=== PATIENT | male | born 1985 | race Two or more races ===

== ENCOUNTER 2018-07-13 16:49 | Emergency (ER) | payer SELFPAY ==
[~2018-07-13] VITALS: Ht 167.6 cm; Wt 77.1 kg
[2018-07-13 17:51] VITALS: BP 143/81
[2018-07-13] MEDS ORDERED: ACYC200C PO (18:53)
[2018-07-13] MEDS ORDERED: PRED20TA PO (18:53)
--- NOTE | 2018-07-13 18:53 | PHYS DOC ---
Past Medical History Past Medical History: No Pertinent History Past Surgical History: No Surgical History Alcohol Use: None Drug Use: None Adult General Chief Complaint Chief Complaint: OTHER COMPLAINTS HPI HPI Patient is a 32 year old male who presents to the emergency room with complaints of not being able to move the right side of his face since awakening this morning. Patient states he has sensation is just unable to close his right eye or move the right side of his forehead her mouth. He denies any recent fever or illness. He denies any recent travel. Patient also denies any vision changes or pain. He denies any past medical, or surgical history he is not allergic to any medications and does not currently take any medications. And started all of a sudden this morning when he woke up. Eyes any drainage from his right eye or any known injury. Review of Systems Review of Systems Constitutional: Denies fever or chills [] Eyes: Denies change in visual acuity, redness, or eye pain; reports tearing from right eye and inability to close his right eye [] HENT: Denies nasal congestion, ear pain or sore throat [] Respiratory: Denies cough, wheezing, or shortness of breath [] Cardiovascular: Denies chest pain Musculoskeletal: Denies back pain or joint pain [] Integument: Denies rash or skin lesions [] Neurologic: Denies headache, focal weakness or sensory changes, reports inability to move the right side of his mouth, his right forehead, or close his right eye since wakening this morning. [] All other systems were reviewed and found to be within normal limits, except as documented in this note. Allergies Allergies Allergies Coded Allergies Type Severity Reaction Last Updated Verified No Known Drug Allergies 07/13/18 No Physical Exam Physical Exam Constitutional: Well developed, well nourished, no acute distress, non-toxic appearance. [] HENT: Normocephalic, atraumatic, bilateral external ears normal, bilateral TMs normal, oropharynx moist, no oral exudates, nose normal; pt is unable to move the right side of his mouth, his R forhead, or his right eyelid, consistent with purdy's palsy [] Eyes: PERRLA, EOMI, conjunctiva normal left eye, conjunctiva appears dry with mild erythema to right eye, no discharge. [] Neck: Normal range of motion, no tenderness, supple, no stridor. [] Skin: Warm, dry, no erythema, no rash. [] Neurologic: Alert and oriented X 3, normal sensory function Psychologic: Affect normal, judgement normal, mood normal. [] Current Patient Data Vital Signs Vital Signs Date Time Temp Pulse Resp B/P (MAP) Pulse Ox O2 Delivery O2 Flow Rate FiO2 07/13/18 17:51 98.3 71 20 143/81 (101) 96 Room Air 98.3 EKG EKG [] Radiology/Procedures Radiology/Procedures [] Course & Med Decision Making Course & Med Decision Making Pertinent Labs and Imaging studies reviewed. (See chart for details) Patient is a 32-year-old male who presented to the emergency Department today with complaints of inability to close his right eye, right eye tearing, and inability to move the right side of his mouth or forehead since awakening this morning. VSS, physical exam is consistent with Purdy's palsy, is treated as such. Patient denies any difficulty speaking, weakness, numbness, tingling, or headache associated with the inability to move the right side of his . He also denied any recent illness. Patient is given prescriptions for acyclovir, and prednisone. He verbalized understanding of these prescriptions, follow-up, home care, and return to ED instructions without any further questions or concerns. The ER nurse place saline drops into the patient's right eye and closed his eye with tape prior to being discharged. [] Dragon Disclaimer Dragon Disclaimer This electronic medical record was generated, in whole or in part, using a voice recognition dictation system. Departure Departure Impression: Primary Impression: Purdy's palsy Disposition: 01 HOME, SELF-CARE Condition: STABLE Referrals: NO PCP (PCP) Patient Instructions: Purdy's Palsy-Brief Additional Instructions: Fill the prescriptions and use them as directed. Purchase [id number] refresh tears to be placed into eye at least once every hour while awake and as needed for dryness. Also purchase [id number] eye lubricant to be applied to your eye at bedtime, tape your eyelid shut during the night. Follow-up with your primary care doctor in the next 1-2 days. Return to the emergency room if her symptoms worsen or persist. Scripts Prednisone (PREDNISONE) 20 Mg Tablet 60 MG PO DAILY for 7 Days, #21 TAB 0 Refills Prov: CARSON MEEK APRN 07/13/18 Acyclovir (ACYCLOVIR) 200 Mg Capsule 2 CAP PO 5XDAY for 10 Days, #100 CAP 0 Refills Prov: CARSON MEEK APRN 07/13/18 CARSON MEEK WATCH LEADER Jul 13, 2018 18:53
== END 2018-07-13 18:58 | disposition home or self-care (01) ==
LOC: ER 16:49
DX: G51.0 Bell's palsy (principal)
CPT/HCPCS: 99283